=== PATIENT | female | born 1965 | race Caucasian/White ===

== ENCOUNTER → 2018-03-16 | Outpatient (CLI) | payer OTHER ==
--- NOTE | 2018-03-29 15:13 | MAMMOGRAPHY REPORT ---
BILATERAL DIGITAL SCREENING MAMMOGRAM TOMOSYNTHESIS WITH CAD: 03/16/2018 CLINICAL HISTORY: Routine screening. The patient has no current complaints. TECHNIQUE: Breast tomosynthesis in addition to standard 2D mammography was performed. Current study w as also evaluated with a Computer Aided Detection (CAD) system. COMPARISON: No prior exams were available for comparison. BREAST COMPOSITION: The tissue of both breasts is extremely dense, which lowers the sensitivity of ma mmography. FINDINGS: There are no suspicious masses, calcifications, or areas of architectural distortion noted in either breast. However, recommend comparison with prior outside mammograms to evaluate for any possible sub tle changes. IMPRESSION: ACR BI-RADS CATEGORY 0: INCOMPLETE EVALUATION: NEED ADDITIONAL IMAGING EVALUATION No mammographic evidence of malignancy in either breast. However, recommend comparison with prior ou tside mammograms to evaluate for any possible subtle changes. The prior outside mammograms have been requested, and an addendum will be made when they are received and a comparison is made. Some breast cancers are not detected with mammography. A negative mammographic report should not marietta y biopsy if a clinically suggestive mass is present. Nishi Noguera M.D. ah/:03/28/2018 15:53:44 [employer]amic Mold Designer: RT Annalise(R)(M), [facility] letter sent: Need Priors 0 BI-RADS Code: ACR BI-RADS Category 0: Incomplete Evaluation: Need Additional Imaging Evaluation
== END | disposition home or self-care (01) ==
LOC: C.MAMM 13:33
PROVIDERS: ATTEND Physician Assistant Medical
DX: Z12.31 Encounter for screening mammogram for malignant neoplasm of breast (principal)